=== PATIENT | male | born 1965 | race Caucasian/White ===

== ENCOUNTER 2018-04-22 22:14 | Emergency (ER) | payer SELFPAY ==
[~2018-04-22] VITALS: Ht 175.3 cm; Wt 85.0 kg
[2018-04-22 22:16] VITALS: BP 162/103
[2018-04-22] MEDS ORDERED: MECLIZINE CHEWABLE 25 MG TAB PO ONE (23:00)
[2018-04-22 23:56] LABS: BASOPHILS # (AUTO) 0.04 x10^3/uL (0-0.1); BASOPHILS % (AUTO) 1 % (0-1); EOSINOPHILS # (AUTO) 0.49 x10^3/uL (0-0.4); EOSINOPHILS % (AUTO) 8 % (1-7); LYMPHOCYTES # (AUTO) 1.39 x10^3/uL (1-3.4); LYMPHOCYTES % (AUTO) 23 % (22-44); MD NO; MEAN CORPUSCULAR HEMOGLOBIN 31.4 pg (27.5-34.5); MEAN CORPUSCULAR HGB CONC 34.4 g/dL (33.2-36.2); MEAN CORPUSCULAR VOLUME 91.2 fL (81-97); MEAN PLATELET VOLUME 8.8 fL (7.4-10.4); MONOCYTES # (AUTO) 0.85 x10^3/uL (0.2-0.8); MONOCYTES % (AUTO) 14 % (2-9); NEUTROPHILS # (AUTO) 3.16 x10^3/uL (1.8-6.8); NEUTROPHILS % (AUTO) 53 % (42-75); PLATELET COUNT 146 x10^3/uL (130-400); RED CELL DISTRIBUTION WIDTH 12.4 % (9.4-14.8)
[2018-04-23 00:02] LABS: ALBUMIN 3.9 g/dL (3.4-5.0); ANION GAP 6 mmol/L (5-15); CALCIUM 8.6 mg/dL (8.5-10.1); CHLORIDE 110 mmol/L (98-107); CREATININE 1.14 mg/dL (0.7-1.3)
--- NOTE | 2018-04-23 00:32 | NUR ---
PT RESTING [facility]UW[facility], FAMILY AT BS
--- NOTE | 2018-04-23 00:35 | NUR ---
pt to room from lobby
[2018-04-23] MEDS ORDERED: MECLIZINE CHEWABLE 25 MG TAB ONE (00:57)
--- NOTE | 2018-04-23 01:38 | NUR ---
Patient/Caregiver given discharge instructions and they have confirmed that they understand the instructions. Patient ambulatory with steady gait.
== END 2018-04-23 01:40 | disposition home or self-care (01) ==
LOC: ED 04-23 01:00
DX: H81.399 Other peripheral vertigo, unspecified ear (principal); R09.81 Nasal congestion; I10 Essential (primary) hypertension; F41.1 Generalized anxiety disorder; F32.9 Major depressive disorder, single episode, unspecified; E78.00 Pure hypercholesterolemia, unspecified
CPT/HCPCS: 36415; 80048; 82040; 85025; 93005; 99284

== ENCOUNTER 2019-03-30 18:03 | Emergency (ER) | payer SELFPAY ==
[~2019-03-30] VITALS: Ht 172.7 cm; Wt 76.4 kg
[2019-03-30 18:12] VITALS: BP 131/89
[2019-03-30] MEDS ORDERED: DEXAMETHASONE 4 MG TABLET PO ONE (18:30)
[2019-03-30] MEDS ORDERED: DEXAMETHASONE 4 MG TABLET ONE (18:34)
--- NOTE | 2019-03-30 18:38 | NUR ---
MEDS ADMIN PER APR. XRAY COMPLETE
== END 2019-03-30 19:05 | disposition home or self-care (01) ==
LOC: ED 18:55
DX: R05 Cough (principal); R06.02 Shortness of breath; H92.03 Otalgia, bilateral; I10 Essential (primary) hypertension
CPT/HCPCS: 71046; 99283